=== PATIENT | female | born 1995 | race Caucasian/White ===

== ENCOUNTER 2022-01-07 16:48 | Emergency (ER) | payer OTHER, SELFPAY ==
--- NOTE | ~2022-01-07 | US_ITS ---
EXAMINATION: US soft tissue head and neck DATE: 01/07/2022 17:40 INDICATION: Lymphadenopathy TECHNIQUE: Multiple grayscale and Doppler ultrasound images of the bilateral submandibular regions we re obtained. COMPARISON: None FINDINGS: Asymmetric mild enlargement of several right submandibular lymph nodes, the largest measuring up to 8 -9 mm in maximal short axis diameter which remains within normal limits. The largest left submandibul ar lymph node measures up to 6 mm in maximal short axis diameter. Symmetric appearance to the bilater al submandibular glands. No abnormal masses or fluid collections identified. IMPRESSION: 1. Asymmetric mild enlargement of several still normal-sized right submandibular lymph nodes which ar e likely reactive. Reviewed, dictated and finalized at location A. IMPRESSION: 1. Asymmetric mild enlargement of several still normal-sized right submandibula r lymph nodes which are likely reactive.
[2022-01-07 16:52] VITALS: BP 153/83; PULSE 83; RESP 18; TEMP 36.3; O2SAT 100
--- NOTE | 2022-01-07 17:05 | ED.NECK ---
HPI - Neck Pain/Injury General Chief Complaint: Neck Pain/Injury Stated Complaint: lump on neck Time Seen by Provider: 01/07/22 16:57 Source: patient Mode of arrival: ambulatory Limitations: no limitations History of Present Illness HPI Narrative: This is a 26 year old female that presents to the ER for lymphadenopathy present over the last month. Also reports associated generalized fatigue. Denies fever, cough, congestion, or sore throat. Review of Systems Review of Systems: CONSTITUTIONAL: Denies fever ENT: Denies rhinorrhea, congestion, sore throat RESPIRATORY: Denies cough SKIN: Denies rash All systems reviewed & are unremarkable except as noted in HPI and below PMFSH Past Medical History Medical History (Updated 01/07/22 @ 19:25 by Veronika Lamas PA-C) History of depression Social History Social History (Updated 01/07/22 @ 17:10 by Veronika Lamas PA-C) Smoking status: Former smoker Alcohol intake: current Substance use: current Substance use type: marijuana Gender identity (if verbalized by the patient): Male Exam Narrative: GENERAL: Well-appearing, well-nourished, and in no acute distress. HEAD: Normocephalic, atraumatic. EYES: EOMI. ENT: Nares clear, no rhinorrhea or epistaxis. Mucous membranes moist. Oropharynx without tonsillar hypertrophy exudate or other lesions. Bilateral TMs pearly hartmann non-bulging NECK: Supple. No masses. Right submandibular area small, mobile lymph node present in area of concern CHEST: Clear to auscultation. No respiratory distress. No wheezes rales or rhonchi HEART: Regular rate and rhythm. No murmur heard. Normal peripheral pulses. EXTREMITIES: Normal range of motion. No edema. SKIN: Warm, dry, no rash. NEURO: No focal deficits. Alert and oriented x3. PSYCH: Normal mood and affect Course Vital Signs Vital signs: Vital Signs Temperature 97.4 F L 01/07/22 16:52 Pulse Rate 83 01/07/22 16:52 Respiratory Rate 18 01/07/22 16:52 Blood Pressure 153/83 H 01/07/22 16:52 Pulse Oximetry 100 01/07/22 16:52 Oxygen Delivery Room Air 01/07/22 16:52 Temperature 97.4 F L 01/07/22 16:52 Pulse Rate 83 01/07/22 16:52 Respiratory Rate 18 01/07/22 16:52 Blood Pressure 153/83 H 01/07/22 16:52 Pulse Oximetry 100 01/07/22 16:52 Oxygen Delivery Room Air 01/07/22 16:52 MDM - Neck Pain/Injury MDM Narrative Medical decision making narrative: Patient presents emergency department for lymphadenopathy noted over the last month. Also reporting fatigue. She is afebrile and nontoxic-appearing. No localizing infectious symptoms. CBC with mild leukocytosis to 11.2. Metabolic panel without concerning findings. TSH is normal. Davis screen negative. Head/neck ultrasound shows asymmetric mild enlargement of several still normal size right submandibular lymph nodes. Patient was updated on case findings. Instructed to have follow-up with her primary doctor. She was given warnings to return to the ER Lab Data Attestation: I reviewed the patient's lab results. Result diagrams: 01/07/22 18:02 01/07/22 18:02 Labs: Lab Results 01/07/22 01/07/22 01/07/22 Range/Units 18:02 18:02 18:02 WBC 11.2 H (4.5-10.0) K/mm3 RBC 5.64 H (4.2-5.4) M/mm3 Hgb 12.8 (12.0-15.0) g/dL Hct 41.7 (37.0-47.0) % MCV 73.9 L (80-100) fl MCH 22.7 L (26-34) pg MCHC 30.7 L (32-36) g/dl RDW 18.6 H (11.5-14.5) % Plt Count 367 (150-375) k/mm3 MPV 10.4 (7.4-10.4) fl Immature Gran % (Auto) 0.4 (0-0.5) % Neut % (Auto) 64.0 (45.5-73.1) % Lymph % (Auto) 29.8 (18.3-44.2) % Davis % (Auto) 4.2 (2.6-8.5) % Eos % (Auto) 1.1 (0-4.4) % Baso % (Auto) 0.5 (0.2-1.2) % Lymph # (Auto) 3.34 H (0.9-3.2) K/mm3 Davis # (Auto) 0.5 (0.1-0.6) K/mm3 Eos # (Auto) 0.1 (0-0.3) K/mm3 Baso # (Auto) 0.1 (0.0-0.1) K/mm3 Abs Immat Gran (auto) 0.04 H (0.00-0.031) K/mm3 Absolute
[2022-01-07 18:16] LABS: Basophils Absolute Auto 0.1 K/mm3 (0.0-0.1); Basophils Percent Auto 0.5 % (0.2-1.2); Eosinophils Absolute Auto 0.1 K/mm3 (0-0.3); Eosinophils Percent Auto 1.1 % (0-4.4); Hematocrit 41.7 % (37.0-47.0); Hemoglobin 12.8 g/dL (12.0-15.0); Immature Granulocyte Absolute 0.04 K/mm3 (0.00-0.031); Immature Granulocyte Percent A 0.4 % (0-0.5); Lymphocytes Absolute Auto 3.34 K/mm3 (0.9-3.2); Lymphocytes Percent Auto 29.8 % (18.3-44.2); Mean Corpuscular HGB Conc 30.7 g/dl (32-36); Mean Corpuscular Hemoglobin 22.7 pg (26-34); Mean Corpuscular Volume 73.9 fl (80-100); Mean Platelet Volume 10.4 fl (7.4-10.4); Monocytes Absolute Auto 0.5 K/mm3 (0.1-0.6); Monocytes Percent Auto 4.2 % (2.6-8.5); Neutrophils Absolute Auto 7.2 K/mm3 (1.3-6.7); Platelet Count Result 367 k/mm3 (150-375); Red Blood Count 5.64 M/mm3 (4.2-5.4); Red Cell Distribution Width 18.6 % (11.5-14.5); White Blood Count 11.2 K/mm3 (4.5-10.0)
[2022-01-07 18:22] LABS: Alanine Aminotransferase 19 U/L (6-35); Albumin Level 4.5 g/dL (3.5-5.1); Alkaline Phosphatase 84 U/L (38-126); Anion Gap 11 mmol/L (8-16); Aspartate Amino Transferase 30 U/L (14-36); Bilirubin,Total 0.6 mg/dL (0.2-1.3); Blood Urea Nitrogen 14 mg/dL (7-17); Calcium 9.4 mg/dL (8.4-10.2); Carbon Dioxide 27 mmol/L (22-30); Chloride 100 mmol/L (98-107); Estimated CRCL calculation 91 ml/min; Estimated Glomerular Filt Rate > 60; Glucose 120 mg/dL (65-110); Sodium 138 mmol/L (137-145)
[2022-01-07 18:39] LABS: Platelet Estimate Adequate (Adequate)
[2022-01-07 18:40] LABS: Anisocytosis 2+ (NORMAL); Hypochromasia 1+ (NORMAL)
[2022-01-07 18:44] LABS: Monoscreen Negative (Negative); Negative Monotest Control Negative (Negative); Positive Monotest Control Positive (Positive)
[2022-01-07 20:23] VITALS: BP 132/86; PULSE 90; RESP 16; O2SAT 97
== END 2022-01-07 20:25 | disposition home or self-care (01) ==
PROVIDERS: Physician Assistant; Emergency Provider Emergency Medicine; PCP Family Medicine
DX: R59.1 Generalized enlarged lymph nodes (principal)
CPT/HCPCS: 36415; 76536; 80053; 84443; 85025; 86308; 99284

== ENCOUNTER 2022-09-07 12:13 | Emergency (ER) | payer OTHER, SELFPAY ==
--- NOTE | ~2022-09-07 | CT_ITS ---
EXAMINATION: CT abdomen pelvis wo con DATE: 09/07/2022 20:18 INDICATION: concern for infected kidney stone TECHNIQUE: Computed tomography (CT) of the abdomen and pelvis was performed without intravenous contr ast. Automated exposure control and iterative reconstruction technique were employed. The dose-length product was 1439.72 mGy-cm. COMPARISON: None. FINDINGS: Lower thorax: Unremarkable Liver: Normal. Biliary/Gallbladder: Gallbladder is normal. No bile duct dilation. Pancreas: No mass or duct dilation. Spleen: Normal. Adrenals:No mass. Kidneys: No perinephric stranding. No hydronephrosis. Punctate left midpole calcification. 4 mm right inferior pole calcification. No suspicious mass. No evidence of obstructive uropathy. GI tract: No small or large bowel dilation. Normal appendix. Mesentery/Peritoneum: No ascites, mass, or free air. Retroperitoneum: No mass. Pelvis: Pelvic organs are within normal limits. Soft Tissues: Soft tissues and body wall unremarkable. Bones: No acute osseous finding. IMPRESSION: No acute abdominopelvic process detected. Reviewed, dictated and finalized at location K.
[2022-09-07 13:04] VITALS: BP 149/95; PULSE 110; RESP 18; TEMP 36.6; O2SAT 95
[2022-09-07 14:32] LABS: Basophils Absolute Auto 0.1 K/mm3 (0.0-0.1); Basophils Percent Auto 0.5 % (0.2-1.2); Eosinophils Absolute Auto 0.1 K/mm3 (0-0.3); Eosinophils Percent Auto 0.8 % (0-4.4); Hematocrit 46.5 % (37.0-47.0); Hemoglobin 14.4 g/dL (12.0-15.0); Immature Granulocyte Absolute 0.03 K/mm3 (0.00-0.031); Immature Granulocyte Percent A 0.3 % (0-0.5); Lymphocytes Absolute Auto 2.31 K/mm3 (0.9-3.2); Lymphocytes Percent Auto 24.9 % (18.3-44.2); Mean Corpuscular Hemoglobin 22.6 pg (26-34); Mean Corpuscular Volume 72.9 fl (80-100); Mean Platelet Volume 10.1 fl (7.4-10.4); Monocytes Absolute Auto 0.5 K/mm3 (0.1-0.6); Monocytes Percent Auto 5.1 % (2.6-8.5); Neutrophils Absolute Auto 6.3 K/mm3 (1.3-6.7); Neutrophils Percent Auto 68.4 % (45.5-73.1); Platelet Count Result 362 k/mm3 (150-375); Red Blood Count 6.38 M/mm3 (4.2-5.4); Red Cell Distribution Width 18.2 % (11.5-14.5); White Blood Count 9.3 K/mm3 (4.5-10.0)
[2022-09-07 14:36] LABS: Alanine Aminotransferase 29 U/L (6-35); Albumin Level 4.6 g/dL (3.5-5.1); Alkaline Phosphatase 88 U/L (38-126); Anion Gap 11 mmol/L (8-16); Aspartate Amino Transferase 33 U/L (14-36); Blood Urea Nitrogen 8 mg/dL (7-17); Calcium 8.9 mg/dL (8.4-10.2); Carbon Dioxide 24 mmol/L (22-30); Chloride 101 mmol/L (98-107); Estimated Glomerular Filt Rate > 60; Glucose 101 mg/dL (65-110); Potassium 4.1 mmol/L (3.4-5.0); Sodium 136 mmol/L (137-145)
[2022-09-07 14:53] LABS: Hypochromasia 2+ (NORMAL); Ovalocytes 1+ (NORMAL); Platelet Estimate Adequate (Adequate); Schistocytes None Seen (NORMAL)
[2022-09-07 15:37] LABS: Bacteria Urine None Seen /hpf; Need Manual Microscopic Reviewed; Non Pathogenic Casts 0-2; Squamous Epithelial Cell Urine Occasional /hpf (Few); WBC Urine 0-5 /hpf
[2022-09-07 15:40] LABS: Appearance Urine Cloudy (Clear); Bilirubin Urine 2+ (Negative); Blood Urine Negative (Negative); Color Urine Orange (Yellow); Glucose Urine UA Negative (Negative); Ketones Urine Negative (Negative); Leukocyte Esterase Ur 2+ LEU/UL (Negative); Nitrate Urine Positive (Negative); Protein Urine 1+ mg/dL (Negative); Specific Grav Ur 1.015 (1.001-1.035)
[2022-09-07 15:41] LABS: Add Urine Microscopic? YES
[2022-09-07 15:59] VITALS: BP 149/95; PULSE 115; RESP 20; TEMP 36.9; O2SAT 95
--- NOTE | 2022-09-07 19:49 | ED.FEMALEGU ---
HPI - Female Genitourinary General Chief complaint: Urogenital-Female <Veronika Steinberg PA-C - Last Filed: 09/07/22 23:56> Stated complaint: complicated kidney stone <Veronika Steinberg PA-C - Last Filed: 09/07/22 23:56> Time Seen by Provider: 09/07/22 19:27 <Veronika Steinberg PA-C - Last Filed: 09/07/22 23:56> History of Present Illness HPI Narrative: 27-year-old female referred here by her PCP over concerns about continued urinary symptoms x3 weeks. Patient has been placed on 3 rounds of outpatient antibiotics and has received 2 IM injections of ceftriaxone but her urinary symptoms continue. Patient states that her urine cultures have never grown any bacteria but she continues to be treated with antibiotics by her PCP. States that she was referred here today because she has developed a left flank pain, nausea, vomiting and continues to have urinary symptoms and they were concerned about an infected stone. She denies any fevers, chills, diarrhea, constipation or further concerning symptoms. She has never had a kidney stone in the past. Not sexually active. <JOSUÉ Ramos Last Filed: 09/07/22 23:56> Related Data Allergies/Adverse reactions: Allergies Allergy/AdvReac Type Severity Reaction Status Date / Time shellfish derived Allergy Unknown Nausea Verified 09/07/22 12:13 Sulfa (Sulfonamide Allergy Unknown Rash Verified 09/07/22 12:13 Antibiotics) <JOSUÉ Ramos Last Filed: 09/07/22 23:56> Review of Systems Review of Systems: Gen.: Denies fevers or chills Eyes: Denies eye pain or visual change ENT: Denies congestion Respiratory: Denies shortness of breath or cough CV: Denies chest pain or palpitations GI: Denies abdominal pain nausea, emesis or diarrhea : reports dysuria Musculoskeletal: Reports back pain Neuro: Denies numbness, tingling, weakness or focal weakness Skin: Denies rash Except as documented, all other systems reviewed and negative <JOSUÉ Ramos Last Filed: 09/07/22 23:56> [facility] Past Medical History Medical History: Medical History History of depression <Veronika Steinberg PA-C - Last Filed: 09/07/22 23:56> Social History Social History: Social History (System 02/11/22 @ 09:50 by Anny Perez) Smoking status: Former smoker Alcohol intake: current Substance use: current Substance use type: marijuana Gender identity (if verbalized by the patient): Male <Veronika Steinberg PA-C - Last Filed: 09/07/22 23:56> Exam Narrative: APPEARANCE: Well appearing, no pain in distress, well-nourished. Head: Normocephalic and atraumatic. EYES: PERRLA/EOMI, conjunctivae clear NOSE: No nasal drainage EARS: External ear normal in appearance THROAT: Oropharynx is clear. Mucous membranes are moist. NECK: Supple. No adenopathy, no masses. RESPIRATORY: Airway patent, respirations nonlabored. Clear to auscultation bilaterally, no rales, rhonchi, wheezing. CARDIOVASCULAR: Regular rate and rhythm without murmurs, rubs, or gallops. ABDOMINAL: Normoactive bowel sounds. Soft, nontender, nondistended. No rebound tenderness or guarding. MUSCULOSKELETAL: No CVA tenderness. extremities are warm and well-perfused. Moves all extremities well. No edema. NEURO: Normal speech. No focal neurologic deficits. SKIN: Skin is warm and dry. No rashes. PSYCHIATRIC: Normal affect/mood. <Veronika Steinberg PA-C - Last Filed: 09/07/22 23:56> Course Course Emergency Course: This is a was performed by both a physician and an APC. I performed all aspects of the MDM as documented w/ the following additions: 27-year-old female presenting with recurrent urinary symptoms. Previous records reviewed and she has not grown anything out on cultures, however she does have nitrites and leuk esterase in her urine today. She will be treated for UTI.
[2022-09-07 20:09] LABS: Lactic Acid Reflex 1.3 mmol/L (0.7-2.0)
[2022-09-07] MEDS: SODIUM CHLORIDE 0.9% IV 1,000 ML 999 ML IV CONT (20:50)
[2022-09-07] MEDS: MORPHINE SULFATE (*CRX) 4 MG/ML INJ IV PUSH (20:50)
[2022-09-07] MEDS: ONDANSETRON INJ 4 MG/2 ML VIAL IV PUSH (20:50)
[2022-09-07 22:18] VITALS: BP 136/86; PULSE 85; RESP 18; O2SAT 98
== END 2022-09-07 22:20 | disposition home or self-care (01) ==
PROVIDERS: Emergency Medicine; Emergency Provider Physician Assistant; PCP Family Medicine
DX: N30.10 Interstitial cystitis (chronic) without hematuria (principal); Z87.891 Personal history of nicotine dependence
CPT/HCPCS: 36415; 74176; 80053; 81001; 81025; 83605; 85025; 96365; 96375; 99284; J0696; J2270; J2405; J7030